=== PATIENT | female | born 1975 | race African-American/Black ===

== ENCOUNTER 2021-07-30 03:53 | Emergency (ER) | payer BC ==
[~2021-07-30] VITALS: Ht 177.8 cm; Wt 83.9 kg
[2021-07-30] MEDS ORDERED: DEXAMETHASONE 4 MG TAB PO STA (04:13)
[2021-07-30] MEDS ORDERED: ALBUTEROL/IPRATROPIUM 3 ML NEB NEB ONE (04:15)
[2021-07-30] MEDS ORDERED: PROVENTIL HFA6.7 GM INH (04:32)
[2021-07-30] MEDS ORDERED: DEXAMETHASONE 4 MG TAB ONE (04:41)
[2021-07-30 04:48] VITALS: BP 99/57
== END 2021-07-30 05:29 | disposition home or self-care (01) ==
LOC: ER 04:09
DX: J44.9 Chronic obstructive pulmonary disease, unspecified (principal); Z87.891 Personal history of nicotine dependence; Z20.822 Contact with and (suspected) exposure to COVID-19
CPT/HCPCS: 71045; 94640; 94799; 99284; J8540; U0002